=== PATIENT | male | born 1945 | race Caucasian/White ===

== ENCOUNTER 2019-02-02 15:03 | Observation (INO) | payer MEDICARE ==
--- NOTE | 2019-02-02 16:14 | PCM.HP.2 ---
H&P History of Present Illness - General Date of Service: 02/02/19 Admit Problem/Dx: Admission Diagnosis/Problem Admission Diagnosis/Problem CHF, Congestive heart failure Source of Information: Patient, Provider, RN Notes Reviewed History Limitations: Reports: No Limitations - History of Present Illness Initial Comments - Free Text/Narative: Mr. Sidhu is a 73-year-old gentleman who was admitted through the emergency department with increased shortness of breath and peripheral edema secondary to CHF and COPD exacerbation. He has a long-standing smoking history and does continue to smoke up until the time of admission. He has known pulmonary fibrosis as well as underlying COPD. There is a long-standing history of coronary artery disease with previous coronary artery bypass surgery as well as angioplasty with stents. Recent echocardiogram showed decreased left ventricular function, estimated ejection fraction of 30-35%. He has recently been diagnosed with bladder carcinoma and is awaiting treatment. Recent CT scan of the chest showed evidence of significant pulmonary fibrosis in the lower lung akhtar. Over the last 24 hours he has become more short of breath to the point that he was unable to sleep last night lying down and had to sit upright and he's also developed increase in peripheral edema. - Related Data Allergies/Adverse Reactions: Allergies Allergy/AdvReac Type Severity Reaction Status Date / Time No Known Allergies Allergy Verified 02/02/19 11:47 Home Medications: Home Meds Acetaminophen [Tylenol] 325 mg PO ASDIRECTED PRN 12/25/18 [History] Albuterol Sulfate [Albuterol Sulfate Hfa] 8.5 gm IH ASDIRECTED PRN 12/25/18 [ History] Aspirin [Halfprin] 81 mg PO DAILY 12/25/18 [History] Metoprolol Succinate [Toprol XL] 25 mg PO BID 12/25/18 [History] Multivitamin with Minerals [Multiple Vitamin] 1 tab PO DAILY 12/25/18 [History] Nitroglycerin [Nitrostat] 0.4 mg SL ASDIRECTED PRN 12/25/18 [History] Tamsulosin [Tamsulosin 24 Hr] 0.4 mg PO DAILY 12/25/18 [History] atorvaSTATin [Lipitor] 10 mg PO BEDTIME 12/25/18 [History] Oxybutynin Chloride [Ditropan Xl] 10 mg PO DAILY 02/02/19 [History] Past Medical History Cardiovascular History: Reports: Bypass, Heart Failure, High Cholesterol, Hypertension, Stents Gastrointestinal History: Reports: None Neurological History: Reports: None Endocrine/Metabolic History: Reports: Obesity/BMI 30+ - Past Surgical History Head Surgeries/Procedures: Reports: None HEENT Surgical History: Reports: LASIK Cardiovascular Surgical History: Reports: Coronary Artery Stent GI Surgical History: Reports: Cholecystectomy, Hernia, Inguinal Male Surgical History: Reports: Other (See Below) Other Male Surgeries/Procedures: tumor removed from bladder and stents placed last spring Endocrine Surgical History: Reports: None Neurological Surgical History: Reports: Lumbar Spine, Other (See Below) Dermatological Surgical History: Reports: None Social & Family History - Caffeine Use Caffeine Use: Reports: Coffee, Soda H&P Review of Systems - Review of Systems: Review Of Systems: See Below General: Reports: Malaise, Weakness. Denies: Fever, Chills HEENT: Reports: No Symptoms Pulmonary: Reports: Shortness of Breath, Wheezing, Cough. Denies: Pleuritic Chest Pain, Sputum, Hemoptysis Cardiovascular: Reports: Dyspnea on Exertion, Orthopnea, Edema. Denies: Chest Pain, Palpitations, PND, Lightheadedness Gastrointestinal: Reports: No Symptoms Genitourinary: Reports: No Symptoms Musculoskeletal: Reports: No Symptoms Skin: Reports: No Symptoms Psychiatric: Reports: No Symptoms Neurological: Reports: No Symptoms Hematologic/Lymphatic: Reports: No Symptoms Immunologic: Reports: No Symptoms Exam - Exam Exam: See Below - Vital Signs Vital Signs: Last Vital Signs Temp 95.8 F 02/02/19 15:56 Pulse 76 02/02/19 15:56 Resp 33 H 02/02/19 15:56 BP 124/69 02/02/19 15:56 Pulse Ox 94 L 02/02/19 15:56 Weight: 230 lb - Exam Quality Assessment: DVT Prophylaxis General: Alert, Oriented, Cooperative, Moderate Distress HEENT: Conjunctiva Clear, Hearing Intact, Mucosa Moist & [place], Normal Nasal Septum, Posterior Pharynx Clear, Pupils Equal Neck: Supple, Trachea Midline, +2 Carotid Pulse wo Bruit Lungs: Decreased Breath Sounds, Crackles, Rhonchi, Wheezing. No: Rales, Rub GI/Abdominal Exam: Soft, Non-Tender, No Organomegaly, No Distention Back Exam: Normal Inspection, Full Range of Motion Extremities: Non-Tender, Pedal Edema Skin: Warm, Dry, Intact Neurological: Cranial Nerves Intact, Strength Equal Bilateral, Normal Gait, Normal Speech, Normal Tone, Sensation Intact. No: Focal Deficit Neuro Extensive - Mental Status: Alert, Oriented x3, Normal Mood/Affect, Normal Cognition, Memory Intact *Q Meaningful Use (ADM) - VTE Risk Assess *Q Each Risk Factor Represents 1 Point: Swollen Legs, Current, Obesity ( BMI > 25 kg/m2), Congestive heart failure (CHF), Abnormal Pulmonary Function (COPD) Total Score 1 Point Risk Factors: 4 Each Risk Factor Represents 2 Points: Age 60 - 74 Years, Malignancy (present or previous) Total Score 2 Point Risk Factors: 4 Each Risk Factor Represents 3 Points: None Total Score 3 Point Risk Factors: 0 Each Risk Factor Represents 5 Points: None Total Score 5 Point Risk Factors: 0 Venous Thromboembolism Risk Factor Score *Q: 8 Problem List Initiated/Reviewed/Updated: Yes Orders Last 24hrs: Active Orders 24 hr Category Date Time Status Patient Status Manage Transfer [TRANSFER] Routine ADT 02/02/19 16:03 Ordered Resuscitation Status Routine Resus Stat 02/02/19 16:05 Ordered Assessment/Plan Comment:: ASSESSMENT AND PLAN COPD/PULMONARY FIBROSIS EXACERBATION-known underlying pulmonary fibrosis with probable component of COPD. Bilateral basilar dry inspiratory rales with bilateral marked expiratory wheezes. No evidence of underlying pulmonary infection. -Nebulizer therapy with albuterol and duo nebs -Supplemental oxygen as needed -Solu-Medrol 40 mg IV every 6 hours CONGESTIVE HEART FAILURE-probable right and left heart failure with significant peripheral edema. Recent echocardiogram documents left ventricular systolic function decreased with ejection fraction of 30-35%. -Continue outpatient medications -Furosemide 40 mg IV given in the emergency department and will be repeated later this evening -Reassess in a.m. -2 g sodium diet ELEVATED TROPONIN-modest elevation, likely demand ischemia in the setting of respiratory compromise. He does have known underlying coronary artery disease. -Serial troponin levels MAINTENANCE ISSUES -DVT prophylaxis; Lovenox 40 mg subcutaneous daily -GI prophylaxis; continue outpatient PPI therapy -Olivo catheter; not indicated -Nutrition; 2 g sodium diet -Nicotine dependence; continues to smoke intermittently, denies need for nicotine patch CODE STATUS-FULL CODE ADMISSION STATUS-this patient will be admitted to observation status, expect no more than a one night hospital stay for evaluation and management of problems as outlined above. DISPOSITION-anticipate discharge to home after the hospital stay. PRIMARY CARE PROVIDER-patient receives primary care at [facility] in [place], does not recall primary care provider's name - Mortality Measure Prognosis:: Poor
[2019-02-02] MEDS ORDERED: Nitroglycerin 0.4 MG Tab.SL SL PRN (16:17)
[2019-02-02] MEDS ORDERED: Ondansetron 4 MG/2 ML SDV IV PRN (16:17)
[2019-02-02] MEDS ORDERED: oxyCODONE 5 MG Tab PO PRN (16:17)
[2019-02-02] MEDS ORDERED: Acetaminophen 325 MG Tab PO PRN (16:17)
[2019-02-02] MEDS ORDERED: Sodium Chloride 0.9% 10 ML Syringe FLUSH PRN (16:17)
[2019-02-02] MEDS ORDERED: Albuterol 0.083% 2.5 MG/3 ML Neb Soln NEB PRN ×2 (16:17→16:58)
[2019-02-02] MEDS ORDERED: Polyethylene Glycol 3350 Powder 17 GM Packet PO PRN (16:17)
[2019-02-02] MEDS: Enoxaparin 40 MG/0.4 ML Syringe SUBCUT SCH (17:45)
[2019-02-02] MEDS: methylPREDNISolone Sodium Succinate 40 MG/1 ML SDV IVPUSH SCH (17:45)
[2019-02-02] MEDS: Albuterol/Ipratropium 3.0-0.5 MG/3 ML Neb Soln NEB SCH (20:44)
[2019-02-02] MEDS: Metoprolol Succinate 25 MG Tab.ER PO SCH (20:45)
[2019-02-02] MEDS: atorvaSTATin 10 MG Tab PO SCH (20:45)
[2019-02-02] MEDS: Oxybutynin 5 MG Tab PO SCH (20:45)
[2019-02-02] MEDS ORDERED: Furosemide 40 MG/4 ML VIAL IVPUSH ONE (21:00)
[2019-02-03] MEDS: methylPREDNISolone Sodium Succinate 40 MG/1 ML SDV IVPUSH SCH ×5 (00:02→23:00)
[2019-02-03] MEDS: Oxybutynin 5 MG Tab PO SCH ×2 (08:40→20:31)
[2019-02-03] MEDS: Tamsulosin 0.4 MG Cap.ER PO SCH (08:40)
[2019-02-03] MEDS: Metoprolol Succinate 25 MG Tab.ER PO SCH ×2 (08:40→20:31)
[2019-02-03] MEDS: Aspirin 81 MG Tab.EC PO SCH (08:40)
[2019-02-03] MEDS ORDERED: Furosemide 40 MG/4 ML VIAL IVPUSH ONE (10:00)
[2019-02-03] MEDS: Albuterol/Ipratropium 3.0-0.5 MG/3 ML Neb Soln NEB SCH ×4 (10:03→20:31)
--- NOTE | 2019-02-03 11:33 | PCM.PN ---
- General Info Date of Service: 02/03/19 Subjective Update: Mr. Sidhu has been stable since admission yesterday, there is been good improvement in peripheral edema with diuresis, modest improvement in shortness of breath. Vital signs are remained stable and he has been afebrile. Troponin remains modestly elevated but has not climbed significantly, consistent with demand ischemia but no evidence of acute infarct. Functional Status: Reports: Tolerating Diet, Ambulating, Urinating - Review of Systems General: Reports: Weakness. Denies: Fever, Chills Pulmonary: Reports: Shortness of Breath, Cough, Wheezing. Denies: Pleuritic Chest Pain, Sputum, Hemoptysis Cardiovascular: Reports: Dyspnea on Exertion, Edema. Denies: Chest Pain, Palpitations, Orthopnea, PND, Lightheadedness Gastrointestinal: Reports: No Symptoms - Patient Data Vitals - Most Recent: Last Vital Signs Temp 96.6 F 02/03/19 07:40 Pulse 78 02/03/19 10:04 Resp 21 H 02/03/19 10:00 BP 147/87 H 02/03/19 10:00 Pulse Ox 93 L 02/03/19 07:40 Weight - Most Recent: 230 lb I&O - Last 24 Hours: Intake & Output 02/02/19 02/03/19 02/03/19 22:59 06:59 14:59 Intake Total 960 550 Output Total 1900 2000 1080 Balance -1900 -8050 -530 Lab Results Last 24 Hours: Laboratory Results - last 24 hr 02/02/19 02/03/19 02/03/19 Range/Units 18:22 00:10 05:34 WBC 8.6 (4.5-11.0) K/uL RBC 5.26 (4.30-5.90) M/uL Hgb 13.7 (12.0-15.0) g/dL Hct 43.9 (40.0-54.0) % MCV 84 (80-98) fL MCH 26 L (27-31) pg MCHC 31 L (32-36) % Plt Count 250 (150-400) K/uL Neut % (Auto) 93 H (36-66) % Lymph % (Auto) 4 L (24-44) % [place] % (Auto) 3 (2-6) % Eos % (Auto) 0 L (2-4) % Baso % (Auto) 0 (0-1) % Sodium (140-148) mmol/L Potassium (3.6-5.2) mmol/L Chloride (100-108) mmol/L Carbon Dioxide (21-32) mmol/L Anion Gap (5.0-14.0) mmol/L BUN (7-18) mg/dL Creatinine (0.8-1.3) mg/dL Est Cr Clr Drug Dosing mL/min Estimated GFR (MDRD) (>60) Glucose (74-106) mg/dL Calcium (8.5-10.1) mg/dL Magnesium (1.8-2.4) mg/dL Troponin I 0.207 H* 0.227 H* (0.000-0.056) ng/mL 02/03/19 Range/Units 05:34 WBC (4.5-11.0) K/uL RBC (4.30-5.90) M/uL Hgb (12.0-15.0) g/dL Hct (40.0-54.0) % MCV (80-98) fL MCH (27-31) pg MCHC (32-36) % Plt Count (150-400) K/uL Neut % (Auto) (36-66) % Lymph % (Auto) (24-44) % [place] % (Auto) (2-6) % Eos % (Auto) (2-4) % Baso % (Auto) (0-1) % Sodium 141 (140-148) mmol/L Potassium 3.9 (3.6-5.2) mmol/L Chloride 103 (100-108) mmol/L Carbon Dioxide 31 (21-32) mmol/L Anion Gap 6.8 (5.0-14.0) mmol/L BUN 20 H (7-18) mg/dL Creatinine 0.9 (0.8-1.3) mg/dL Est Cr Clr Drug Dosing 70.38 mL/min Estimated GFR (MDRD) > 60 (>60) Glucose 176 H (74-106) mg/dL Calcium 8.5 (8.5-10.1) mg/dL Magnesium 2.0 (1.8-2.4) mg/dL Troponin I 0.204 H* (0.000-0.056) ng/mL Med Orders - Current: Current Medications Acetaminophen (Tylenol) 650 mg PO Q4H PRN PRN Reason: Pain (Mild 1-3)/fever Albuterol (Proventil Neb Soln) 2.5 mg NEB Q4H PRN PRN Reason: Shortness Of Breath/wheezing Albuterol (Proventil Neb Soln) 2.5 mg NEB Q4H PRN PRN Reason: Dyspnea Albuterol/Ipratropium (Duoneb 3.0-0.5 Mg/3 Ml) 3 ml NEB QIDRT [facility] Last Admin: 02/03/19 10:03 Dose: 3 ml Aspirin (Halfprin) 81 mg PO DAILY [facility] Last Admin: 02/03/19 08:40 Dose: 81 mg Atorvastatin Calcium (Lipitor) 10 mg PO BEDTIME [facility] Last Admin: 02/02/19 20:45 Dose: 10 mg Enoxaparin Sodium (Lovenox) 40 mg SUBCUT Q24H [facility] Last Admin: 02/02/19 17:45 Dose: 40 mg Furosemide (Lasix) 40 mg IVPUSH Q12H [facility] Methylprednisolone Sodium Succinate (Solu-Medrol) 40 mg IVPUSH Q6H [facility] Last Admin: 02/03/19 05:45 Dose: 40 mg Metoprolol Succinate (Toprol Xl) 25 mg PO BID [facility] Last Admin: 02/03/19 08:40 Dose: 25 mg Nitroglycerin (Nitrostat) 0.4 mg SL Q5M PRN PRN Reason: Chest Pain Ondansetron HCl (Zofran) 4 mg IV Q4H PRN PRN Reason: Nausea/Vomiting Oxybutynin Chloride (Oxybutynin) 5 mg PO BID [facility] Last Admin: 02/03/19 08:40 Dose: 5 mg Oxycodone HCl (Oxycodone) 5 mg PO Q4H PRN PRN Reason: Pain (moderate 4-6) Polyethylene Glycol (Miralax) 17 gm PO DAILY PRN PRN Reason: Constipation Sodium Chloride (Saline Flush) 10 ml FLUSH ASDIRECTED PRN PRN Reason: Keep Vein Open Tamsulosin HCl (Flomax) 0.4 mg PO DAILY [facility] Last Admin: 02/03/19 08:40 Dose: 0.4 mg Discontinued Medications Furosemide (Lasix) 40 mg IVPUSH NOW ONE Stop: 02/02/19 21:01 Last Admin: 02/02/19 20:45 Dose: 40 mg Furosemide (Lasix) 40 mg IVPUSH NOW ONE Stop: 02/03/19 10:01 Last Admin: 02/03/19 10:10 Dose: 40 mg - Exam Quality Assessment: Supplemental Oxygen, DVT Prophylaxis General: Alert, Oriented, Cooperative, Mild Distress Lungs: Decreased Breath Sounds, Rhonchi, Wheezing. No: Rales, Rub, Stridor Cardiovascular: Regular Rate, Regular Rhythm, No Murmurs, Murmurs GI/Abdominal Exam: Soft, Non-Tender, No Organomegaly, No Distention Extremities: Non-Tender, Pedal Edema - Problem List Review Problem List Initiated/Reviewed/Updated: Yes - My Orders Last 24 Hours: My Active Orders 02/02/19 16:05 Resuscitation Status Routine 02/02/19 16:17 Patient Status [ADT] Routine Ambulate [RC] QID Cardiac Education [RC] Click to Edit Cardiac Monitoring [RC] Q6H Height and Weight [RC] DAILY Intake and Output [RC] QSHIFT Notify Provider Vital Signs [RC] ASDIRECTED Oxygen Therapy [RC] PRN Pulse Oximetry [RC] CONTINUOUS RT Aerosol Therapy [RC] ASDIRECTED Up With Assistance [RC] ASDIRECTED Up to Chair [RC] QID VTE/DVT Education [RC] Per Unit Routine Vital Signs [RC] Q2H Acetaminophen [Tylenol] 650 mg PO Q4H PRN Albuterol [Proventil Neb Soln] 2.5 mg NEB Q4H PRN Nitroglycerin [Nitrostat] 0.4 mg SL Q5M PRN Ondansetron [Zofran] 4 mg IV Q4H PRN Polyethylene Glycol 3350 [MiraLAX] 17 gm PO DAILY PRN Sodium Chloride 0.9% [Saline Flush] 10 ml FLUSH ASDIRECTED PRN oxyCODONE 5 mg PO Q4H PRN Saline Lock Insert [OM.PC] Routine 02/02/19 16:58 Albuterol [Proventil Neb Soln] 2.5 mg NEB Q4H PRN 02/02/19 18:00 Enoxaparin [Lovenox] 40 mg SUBCUT Q24H methylPREDNISolone Sod Succ [Solu-MEDROL] 40 mg IVPUSH Q6H 02/02/19 18:37 EKG Documentation Completion [RC] ASDIRECTED EKG 12 Lead [EK] Routine 02/02/19 21:00 Albuterol/Ipratropium [DuoNeb 3.0-0.5 MG/3 ML] 3 ml NEB QIDRT Metoprolol Succinate [Toprol XL] 25 mg PO BID Oxybutynin 5 mg PO BID atorvaSTATin [Lipitor] 10 mg PO BEDTIME 02/02/19 Lunch 2 Gram Sodium Diet [DIET] 02/03/19 09:00 Aspirin [Halfprin] 81 mg PO DAILY Tamsulosin [Flomax] 0.4 mg PO DAILY 02/03/19 11:29 Potassium Chloride [Klor-Con M20] 40 meq PO ONETIME ONE 02/03/19 19:00 Furosemide [Lasix] 40 mg IVPUSH Q12H 02/04/19 05:00 BASIC METABOLIC PANEL,BMP [CHEM] Timed TROPONIN I [CHEM] Timed - Plan Plan:: ASSESSMENT AND PLAN COPD/PULMONARY FIBROSIS EXACERBATION-known underlying pulmonary fibrosis with probable component of COPD. Bilateral basilar dry inspiratory rales with bilateral marked expiratory wheezes. No evidence of underlying pulmonary infection. Modest improvement in shortness of breath with current management -Nebulizer therapy with albuterol and duo nebs -Supplemental oxygen as needed -Solu-Medrol 40 mg IV every 6 hours CONGESTIVE HEART FAILURE-probable right and left heart failure with significant peripheral edema. Recent echocardiogram documents left ventricular systolic function decreased with ejection fraction of 30-35%. Good improvement thus far in peripheral edema with diuretic therapy -Continue outpatient medications -Furosemide 40 mg IV every 12 hours -Reassess in a.m. -2 g sodium diet ELEVATED TROPONIN-modest elevation, likely demand ischemia in the setting of respiratory compromise. He does have known underlying coronary artery disease. -Serial troponin levels MAINTENANCE ISSUES -DVT prophylaxis; Lovenox 40 mg subcutaneous daily -GI prophylaxis; continue outpatient PPI therapy -Olivo catheter; not indicated -Nutrition; 2 g sodium diet -Nicotine dependence; continues to smoke intermittently, denies need for nicotine patch CODE STATUS-FULL CODE ADMISSION STATUS-this patient will be admitted to observation status, expect no more than a one night hospital stay for evaluation and management of problems as outlined above. DISPOSITION-anticipate discharge to home after the hospital stay. PRIMARY CARE PROVIDER-patient receives primary care at [facility] in [place], does not recall primary care provider's name
[2019-02-03] MEDS ORDERED: Potassium Chloride 20 MEQ Tab.ER PO ONE (12:00)
[2019-02-03] MEDS: Enoxaparin 40 MG/0.4 ML Syringe SUBCUT SCH (18:33)
[2019-02-03] MEDS: Furosemide 40 MG/4 ML VIAL IVPUSH SCH (18:33)
[2019-02-03] MEDS: atorvaSTATin 10 MG Tab PO SCH (20:31)
[2019-02-03] MEDS ORDERED: Melatonin 3 MG Tab PO ONE (21:25)
[2019-02-04] MEDS: methylPREDNISolone Sodium Succinate 40 MG/1 ML SDV IVPUSH SCH (05:42)
[2019-02-04] MEDS: Albuterol/Ipratropium 3.0-0.5 MG/3 ML Neb Soln NEB SCH (07:32)
[2019-02-04] MEDS: Furosemide 40 MG/4 ML VIAL IVPUSH SCH (08:01)
[2019-02-04] MEDS: Aspirin 81 MG Tab.EC PO SCH (08:01)
[2019-02-04] MEDS: Tamsulosin 0.4 MG Cap.ER PO SCH (08:01)
[2019-02-04] MEDS: Metoprolol Succinate 25 MG Tab.ER PO SCH (08:01)
[2019-02-04] MEDS: Oxybutynin 5 MG Tab PO SCH (08:01)
--- NOTE | 2019-02-04 09:45 | PCM.DCSUM1 ---
Discharge Summary - Hospital Course Brief History: Mr. Sidhu is a 73-year-old gentleman who was admitted through the emergency department with weakness, shortness of breath, and increased peripheral edema secondary to congestive heart failure and COPD exacerbation. - Discharge Data Discharge Date: 02/04/19 Discharge Disposition: Home, Self-Care 01 Condition: Fair - Discharge Diagnosis/Problem(s) (1) CHF exacerbation SNOMED Code(s): 611787073, 30558812608980 ICD Code: I50.9 - HEART FAILURE, UNSPECIFIED Status: Acute Current Visit : Yes (2) COPD exacerbation SNOMED Code(s): 287980182 ICD Code: J44.1 - CHRONIC OBSTRUCTIVE PULMONARY DISEASE W (ACUTE) EXACERBATION Status: Acute Current Visit: Yes (3) Hypoxia SNOMED Code(s): 658247625 ICD Code: R09.02 - HYPOXEMIA Status: Acute Current Visit: Yes (4) Pulmonary fibrosis SNOMED Code(s): 74059440 ICD Code: J84.10 - PULMONARY FIBROSIS, UNSPECIFIED Status: Acute Current Visit: No - Patient Summary/Data Hospital Course: Mr. Sidhu is a 73-year-old gentleman who was admitted through the emergency department with increased shortness of breath and peripheral edema secondary to CHF and COPD exacerbation. He has a long-standing smoking history and does continue to smoke up until the time of admission. He has known pulmonary fibrosis as well as underlying COPD. There is a long-standing history of coronary artery disease with previous coronary artery bypass surgery as well as angioplasty with stents. Recent echocardiogram showed decreased left ventricular function, estimated ejection fraction of 30-35%. He has recently been diagnosed with bladder carcinoma and is awaiting treatment. Recent CT scan of the chest showed evidence of significant pulmonary fibrosis in the lower lung akhtar. Over the last 24 hours he has become more short of breath to the point that he was unable to sleep last night lying down and had to sit upright and he's also developed increase in peripheral edema. He was given IV furosemide 40 mg in the emergency department which did initiate a good diuresis. Also noted in the emergency department was a modest elevation in his troponin level, this was felt to be likely demand ischemia in the setting of respiratory compromise. By the following morning he was feeling somewhat improved and did agree to stay 1 additional day for further diuresis. Troponin levels remain modestly elevated but did not increase significantly during the hospital stay. He denied any symptoms of chest pain or pressure, EKG showed no acute ST segment changes. On the day prior to discharge he was noted to have oxygen saturation of 86% on room air while at rest. He will be discharged home with home oxygen 2 L/m via nasal cannula. He was felt to have COPD exacerbation as well with bilateral expiratory wheezes he was treated with nebulizer therapy and Solu-Medrol. It was no evidence of underlying pulmonary infection identified during hospitalization. He will be discharged home with an additional 3 days of oral prednisone. The importance of a low sodium diet was reviewed with him and he will be discharged home on diuretic therapy with furosemide 40 mg by mouth daily. Follow-up appointment will be scheduled with his primary care provider within one week. Activity will be as tolerated and he is again encouraged to follow a low-sodium diet. - Patient Instructions Diet: Low Sodium Activity: As Tolerated Other/Special Instructions: Please schedule follow-up appointment with primary care provider within one week. Please arrange for home oxygen 2 L/m via nasal cannula. - Discharge Plan *PRESCRIPTION DRUG MONITORING PROGRAM REVIEWED*: Not Applicable *COPY OF PRESCRIPTION DRUG MONITORING REPORT IN PATIENT SIMONE: Not Applicable Prescriptions/Med Rec: Furosemide 40 mg PO DAILY #30 tablet predniSONE [Prednisone] 40 mg PO DAILY #6 tablet Home Medications: Home Meds Acetaminophen [Tylenol] 325 mg PO ASDIRECTED PRN 12/25/18 [History] Albuterol Sulfate [Albuterol Sulfate Hfa] 8.5 gm IH ASDIRECTED PRN 12/25/18 [ History] Aspirin [Halfprin] 81 mg PO DAILY 12/25/18 [History] Metoprolol Succinate [Toprol XL] 25 mg PO BID 12/25/18 [History] Multivitamin with Minerals [Multiple Vitamin] 1 tab PO DAILY 12/25/18 [History] Nitroglycerin [Nitrostat] 0.4 mg SL ASDIRECTED PRN 12/25/18 [History] Tamsulosin [Flomax] 0.4 mg PO DAILY 12/25/18 [History] atorvaSTATin [Lipitor] 10 mg PO BEDTIME 12/25/18 [History] Oxybutynin Chloride [Ditropan Xl] 10 mg PO DAILY 02/02/19 [History] Furosemide 40 mg PO DAILY #30 tablet 02/04/19 [Rx] predniSONE [Prednisone] 40 mg PO DAILY #6 tablet 02/04/19 [Rx] Oxygen Therapy Mode: Nasal Cannula Oxygen Flow Rate (L/min): 2 - Discharge Summary/Plan Comment DC Time >30 min.: No - Patient Data Vitals - Most Recent: Last Vital Signs Temp 94.9 F L 02/04/19 08:00 Pulse 74 02/04/19 08:01 Resp 21 H 02/04/19 08:00 BP 105/69 02/04/19 08:01 Pulse Ox 90 L 02/04/19 08:06 Weight - Most Recent: 230 lb I&O - Last 24 hours: Intake & Output 02/03/19 02/04/19 02/04/19 22:59 06:59 14:59 Intake Total 1100 240 340 Output Total 1200 550 Balance -100 -310 340 Lab Results - Last 24 hrs: Laboratory Results - last 24 hr 02/03/19 02/03/19 02/04/19 Range/Units 17:33 17:33 05:47 Sodium 139 L (140-148) mmol/L Potassium 4.3 3.9 (3.6-5.2) mmol/L Chloride 102 (100-108) mmol/L Carbon Dioxide 32 (21-32) mmol/L Anion Gap 8.9 (5.0-14.0) mmol/L BUN 25 H (7-18) mg/dL Creatinine 1.1 (0.8-1.3) mg/dL Est Cr Clr Drug Dosing 57.59 mL/min Estimated GFR (MDRD) > 60 (>60) Glucose 221 H (74-106) mg/dL Calcium 8.7 (8.5-10.1) mg/dL Magnesium 2.0 (1.8-2.4) mg/dL Troponin I 0.144 H* (0.000-0.056) ng/mL Med Orders - Current: Current Medications Acetaminophen (Tylenol) 650 mg PO Q4H PRN PRN Reason: Pain (Mild 1-3)/fever Albuterol (Proventil Neb Soln) 2.5 mg NEB Q4H PRN PRN Reason: Shortness Of Breath/wheezing Albuterol (Proventil Neb Soln) 2.5 mg NEB Q4H PRN PRN Reason: Dyspnea Albuterol/Ipratropium (Duoneb 3.0-0.5 Mg/3 Ml) 3 ml NEB QIDRT [facility] Last Admin: 02/04/19 07:32 Dose: Not Given Aspirin (Halfprin) 81 mg PO DAILY [facility] Last Admin: 02/04/19 08:01 Dose: 81 mg Atorvastatin Calcium (Lipitor) 10 mg PO BEDTIME [facility] Last Admin: 02/03/19 20:31 Dose: 10 mg Enoxaparin Sodium (Lovenox) 40 mg SUBCUT Q24H [facility] Last Admin: 02/03/19 18:33 Dose: Not Given Furosemide (Lasix) 40 mg IVPUSH Q12H [facility] Last Admin: 02/04/19 08:01 Dose: 40 mg Methylprednisolone Sodium Succinate (Solu-Medrol) 40 mg IVPUSH Q6H [facility] Last Admin: 02/04/19 05:42 Dose: 40 mg Metoprolol Succinate (Toprol Xl) 25 mg PO BID [facility] Last Admin: 02/04/19 08:01 Dose: 25 mg Nitroglycerin (Nitrostat) 0.4 mg SL Q5M PRN PRN Reason: Chest Pain Ondansetron HCl (Zofran) 4 mg IV Q4H PRN PRN Reason: Nausea/Vomiting Oxybutynin Chloride (Oxybutynin) 5 mg PO BID [facility] Last Admin: 02/04/19 08:01 Dose: 5 mg Oxycodone HCl (Oxycodone) 5 mg PO Q4H PRN PRN Reason: Pain (moderate 4-6) Polyethylene Glycol (Miralax) 17 gm PO DAILY PRN PRN Reason: Constipation Sodium Chloride (Saline Flush) 10 ml FLUSH ASDIRECTED PRN PRN Reason: Keep Vein Open Last Admin: 02/03/19 18:40 Dose: 10 ml Tamsulosin HCl (Flomax) 0.4 mg PO DAILY [facility] Last Admin: 02/04/19 08:01 Dose: 0.4 mg Discontinued Medications Furosemide (Lasix) 40 mg IVPUSH NOW ONE Stop: 02/02/19 21:01 Last Admin: 02/02/19 20:45 Dose: 40 mg Furosemide (Lasix) 40 mg IVPUSH NOW ONE Stop: 02/03/19 10:01 Last Admin: 02/03/19 10:10 Dose: 40 mg Melatonin (Melatonin) 6 mg PO BEDTIME ONE Stop: 02/03/19 21:26 Last Admin: 02/03/19 23:00 Dose: 6 mg Potassium Chloride (Klor-Con M20) 40 meq PO ONETIME ONE Stop: 02/03/19 12:01 Last Admin: 02/03/19 11:36 Dose: 40 meq - Exam Quality Assessment: Reports: DVT Prophylaxis General: Reports: Alert, Oriented, Cooperative, No Acute Distress Lungs: Reports: Decreased Breath Sounds, Crackles (Both bases). Denies: Rhonchi , Wheezing Cardiovascular: Reports: Regular Rate, Regular Rhythm, Murmurs GI/Abdominal Exam: Soft, Non-Tender, No Organomegaly, No Distention Extremities: Non-Tender, Pedal Edema
== END 2019-02-04 10:20 | disposition home or self-care (01) ==
LOC: JP.ICU 15:03 → UNDOADMIN 15:03 → JP.ICU 16:03 → UNDODISIN 02-04 10:20
PROVIDERS: ADMIT Hospitalist; ATTEND Hospitalist
DX: I11.0 Hypertensive heart disease with heart failure (principal); I50.9 Heart failure, unspecified; J44.1 Chronic obstructive pulmonary disease with (acute) exacerbation; J84.10 Pulmonary fibrosis, unspecified; I25.10 Atherosclerotic heart disease of native coronary artery without angina pectoris; C67.9 Malignant neoplasm of bladder, unspecified; E78.00 Pure hypercholesterolemia, unspecified; E66.9 Obesity, unspecified; R79.89 Other specified abnormal findings of blood chemistry; F17.210 Nicotine dependence, cigarettes, uncomplicated; Z95.1 Presence of aortocoronary bypass graft; Z95.5 Presence of coronary angioplasty implant and graft; Z79.899 Other long term (current) drug therapy; Z79.82 Long term (current) use of aspirin; Z68.36 Body mass index [BMI] 36.0-36.9, adult
CPT/HCPCS: 36415; 80048; 83735; 84132; 84484; 85025; 93005; 93010; 94640; A9270; J1650; J1940; J2920; J7620-GY

== ENCOUNTER 2019-02-14 11:59 | Emergency (ER) | payer MEDICARE ==
[2019-02-14] MEDS ORDERED: Aspirin 81 MG Tab.Chew PO ONE (12:16)
[2019-02-14] MEDS ORDERED: Nitroglycerin 0.4 MG Tab.SL SL ONE (12:16)
[2019-02-14] MEDS ORDERED: Metoprolol Tartrate 5 MG/5 ML SDV IVPUSH ONE ×2 (12:25→13:22)
[2019-02-14] MEDS ORDERED: Furosemide 40 MG/4 ML VIAL IVPUSH ONE (12:27)
[2019-02-14] MEDS ORDERED: Sodium Chloride 0.9% 1,000 ML IV SCH (12:30)
[2019-02-14] MEDS ORDERED: Albuterol 0.083% 2.5 MG/3 ML Neb Soln NEB ONE (12:40)
--- NOTE | 2019-02-14 13:11 | EDM.PDOC ---
ED HPI GENERAL MEDICAL PROBLEM - General Chief Complaint: Chest Pain Stated Complaint: HEART ISSUES Time Seen by Provider: 02/14/19 13:03 Source of Information: Reports: Patient History Limitations: Reports: No Limitations - History of Present Illness INITIAL COMMENTS - FREE TEXT/NARRATIVE: pt arrived with left sided chest pain. This has been going on and off for the past few days. he has been sob. He has noted marked increase in ankle swelling. He has a history of 2-3 heart attacks in the past. Onset: Other (pt has been having increased swelling and chest pain for the past 2-3 days. ) Duration: Hour(s): Location: Reports: Chest Associated Symptoms: Reports: Cough, Malaise, Shortness of Breath, Weakness Chest Pain Score (Numeric/FACES): 0 - Related Data Allergies Allergy/AdvReac Type Severity Reaction Status Date / Time No Known Allergies Allergy Verified 02/02/19 11:47 Home Meds: Home Meds Acetaminophen [Tylenol] 325 mg PO ASDIRECTED PRN 12/25/18 [History] Albuterol Sulfate [Albuterol Sulfate Hfa] 8.5 gm IH ASDIRECTED PRN 12/25/18 [ History] Aspirin [Halfprin] 81 mg PO DAILY 12/25/18 [History] Metoprolol Succinate [Toprol XL] 25 mg PO BID 12/25/18 [History] Multivitamin with Minerals [Multiple Vitamin] 1 tab PO DAILY 12/25/18 [History] Nitroglycerin [Nitrostat] 0.4 mg SL ASDIRECTED PRN 12/25/18 [History] Tamsulosin [Flomax] 0.4 mg PO DAILY 12/25/18 [History] atorvaSTATin [Lipitor] 10 mg PO BEDTIME 12/25/18 [History] Oxybutynin Chloride [Ditropan Xl] 10 mg PO DAILY 02/02/19 [History] Furosemide 40 mg PO DAILY #30 tablet 02/04/19 [Rx] Past Medical History Cardiovascular History: Reports: Bypass, Heart Failure, High Cholesterol, Hypertension, Stents Respiratory History: Reports: COPD Gastrointestinal History: Reports: None Neurological History: Reports: None Endocrine/Metabolic History: Reports: Obesity/BMI 30+ Oncologic (Cancer) History: Reports: Bladder - Past Surgical History Head Surgeries/Procedures: Reports: None HEENT Surgical History: Reports: JESU Cardiovascular Surgical History: Reports: Coronary Artery Stent GI Surgical History: Reports: Cholecystectomy, Hernia, Inguinal Male Surgical History: Reports: Other (See Below) Other Male Surgeries/Procedures: tumor removed from bladder and stents placed last spring Endocrine Surgical History: Reports: None Neurological Surgical History: Reports: Lumbar Spine, Other (See Below) Dermatological Surgical History: Reports: None Social & Family History - Tobacco Use Smoking Status *Q: Current Every Day Smoker Years of Tobacco use: 50 Packs/Tins Daily: 1 - Caffeine Use Caffeine Use: Reports: Coffee, Soda - Recreational Drug Use Recreational Drug Use: No ED ROS GENERAL - Review of Systems Review Of Systems: See Below Constitutional: Reports: Weakness HEENT: Reports: No Symptoms Respiratory: Reports: Shortness of Breath, Cough, Other (pt has had left sided chest pain. ) Cardiovascular: Reports: Chest Pain, Dyspnea on Exertion, Edema GI/Abdominal: Reports: No Symptoms : Reports: No Symptoms Musculoskeletal: Reports: No Symptoms Skin: Reports: No Symptoms Neurological: Reports: No Symptoms Psychiatric: Reports: Agitation ED EXAM, GENERAL - Physical Exam Exam: See Below Free Text/Narrative:: pt arrived sob and with increased swelling in his ankles. He had a elevated trop and a rapid atrial fib. He has a known rt bundle branch block. His chest xray showed chf. Exam Limited By: No Limitations General Appearance: Alert, Anxious, Mild Distress, Other (pt was having left sided chest pain. He was given asa and 1 nitro and his pain was better. ) Ears: Normal TMs Nose: Normal Inspection Throat/Mouth: Normal Inspection Head: Atraumatic Neck: Normal Inspection Respiratory/Chest: Decreased Breath Sounds, Rales Cardiovascular: Tachycardia, Irregularly Irregular, Other (pt is having left sided chest pain. ) GI/Abdominal: Soft, Non-Tender (Male) Exam: Deferred Rectal (Males) Exam: Deferred Back Exam: Normal Inspection Extremities: Pedal Edema, Other (pt has plus 3 edema) Neurological: Alert, Oriented, Normal Cognition Psychiatric: Anxious Course - Vital Signs Last Recorded V/S: Last Vital Signs Temp 35.0 C L 02/14/19 12:26 Pulse 93 02/14/19 15:31 Resp 20 02/14/19 15:31 BP 125/89 02/14/19 15:31 Pulse Ox 93 L 02/14/19 13:19 - Orders/Labs/Meds Labs: Laboratory Tests 02/14/19 02/14/19 02/14/19 Range/Units 12:07 12:08 12:08 WBC 12.9 H (4.5-11.0) K/uL RBC 5.88 (4.30-5.90) M/uL Hgb 15.3 H (12.0-15.0) g/dL Hct 48.4 (40.0-54.0) % MCV 82 (80-98) fL MCH 26 L (27-31) pg MCHC 32 (32-36) % Plt Count 234 (150-400) K/uL Neut % (Auto) 78 H (36-66) % Lymph % (Auto) 11 L (24-44) % [place] % (Auto) 10 H (2-6) % Eos % (Auto) 1 L (2-4) % Baso % (Auto) 0 (0-1) % Sodium (140-148) mmol/L Potassium (3.6-5.2) mmol/L Chloride (100-108) mmol/L Carbon Dioxide (21-32) mmol/L Anion Gap (5.0-14.0) mmol/L BUN (7-18) mg/dL Creatinine (0.8-1.3) mg/dL Est Cr Clr Drug Dosing mL/min Estimated GFR (MDRD) (>60) Glucose (74-106) mg/dL Calcium (8.5-10.1) mg/dL Magnesium 2.2 (1.8-2.4) mg/dL Total Bilirubin (0.2-1.0) mg/dL AST (15-37) U/L ALT (12-78) U/L Alkaline Phosphatase (46-116) U/L Troponin I 0.680 H* (0.000-0.056) ng/mL NT-Pro-B Natriuret Pep (5-125) pg/mL Total Protein (6.4-8.2) g/dL Albumin (3.4-5.0) g/dL Globulin (2.3-3.5) g/dL Albumin/Globulin Ratio (1.2-2.2) 02/14/19 02/14/19 02/14/19 Range/Units 12:08 12:43 14:10 WBC (4.5-11.0) K/uL RBC (4.30-5.90) M/uL Hgb (12.0-15.0) g/dL Hct (40.0-54.0) % MCV (80-98) fL MCH (27-31) pg MCHC (32-36) % Plt Count (150-400) K/uL Neut % (Auto) (36-66) % Lymph % (Auto) (24-44) % [place] % (Auto) (2-6) % Eos % (Auto) (2-4) % Baso % (Auto) (0-1) % Sodium 137 L (140-148) mmol/L Potassium 4.0 (3.6-5.2) mmol/L Chloride 101 (100-108) mmol/L Carbon Dioxide 25 (21-32) mmol/L Anion Gap 15.0 H (5.0-14.0) mmol/L BUN 20 H (7-18) mg/dL Creatinine 1.3 (0.8-1.3) mg/dL Est Cr Clr Drug Dosing 50.42 mL/min Estimated GFR (MDRD) 54 L (>60) Glucose 222 H (74-106) mg/dL Calcium 8.6 (8.5-10.1) mg/dL Magnesium (1.8-2.4) mg/dL Total Bilirubin 1.0 (0.2-1.0) mg/dL AST 55 H D (15-37) U/L ALT 69 (12-78) U/L Alkaline Phosphatase 151 H (46-116) U/L Troponin I 1.089 H* (0.000-0.056) ng/mL NT-Pro-B Natriuret Pep 24246 H (5-125) pg/mL Total Protein 7.1 (6.4-8.2) g/dL Albumin 3.1 L (3.4-5.0) g/dL Globulin 4.0 H (2.3-3.5) g/dL Albumin/Globulin Ratio 0.8 L (1.2-2.2) Meds: Medications Discontinued Medications Generic Name Dose Route Start Last Admin Trade Name Freq PRN Reason Stop Dose Admin Albuterol 2.5 mg 02/14/19 12:40 02/14/19 13:20 Proventil Neb Soln NEB 02/14/19 12:41 2.5 mg ONETIME ONE Administration Aspirin 324 mg 02/14/19 12:16 02/14/19 12:20 Aspirin PO 02/14/19 12:17 324 mg ONETIME ONE Administration Furosemide 40 mg 02/14/19 12:27 02/14/19 13:24 Lasix IVPUSH 02/14/19 12:28 40 mg ONETIME ONE Administration Sodium Chloride 1,000 mls @ 100 mls/hr 02/14/19 12:30 02/14/19 12:24 Normal Saline IV 100 mls/hr ASDIRECTED ALLAN Administration Metoprolol Tartrate 2.5 mg 02/14/19 12:25 02/14/19 13:25 Lopressor IVPUSH 02/14/19 12:26 2.5 mg ONETIME ONE Administration Metoprolol Tartrate 2.5 mg 02/14/19 13:22 02/14/19 14:09 Lopressor IVPUSH 02/14/19 13:23 2.5 mg ONETIME ONE Administration Nitroglycerin 0.4 mg 02/14/19 12:16 02/14/19 12:22 Nitrostat SL 02/14/19 12:17 0.4 mg ONETIME ONE Administration - Re-Assessments/Exams Free Text/Narrative Re-Assessment/Exam: 02/14/19 16:00 pt arrived with sob, ankle swelling and left sided chest pain. His chest xray showed chf. His trop was ip and the second one was greater than 1.0. He had a markedly elevated bnp. pt absolutely refused to be transfered to Cardiology in [place] by ambulance. Because he refused to go by ambulance an appt was set up for 9 am tomorrow and pt is aware of this. 02/17/19 20:55 Departure - Departure Time of Disposition: 15:49 Disposition: Against Medical Advice 07 Condition: Fair Clinical Impression: Atrial fibrillation, Elevated troponin CHF (congestive heart failure) Qualifiers: Heart failure type: unspecified Heart failure chronicity: acute on chronic Qualified Code(s): I50.9 - Heart failure, unspecified Instructions: Atrial Fibrillation, [id number] Referrals: PCP,None [Primary Care Provider] - Forms: ED Department Discharge Care Plan Goals: . pt refuses to be transfered to cardiology but states he will go to [place] tomorrow morning. I did have Dr cantu come and talk to him and he also could not convince him either to stay here or be transfered to [place] by ambulance. I did call [place] to see if some arrangement could be made for tomorrow for him so he is a direct admit. Increase furosomide to 40 mg bid and increase metorprol to 50mg qam and 25 mg in the pm. rtc if he should get worse. copy lab work, ekgs and Handp to send with him.
--- NOTE | 2019-02-14 13:23 | CRLCR ---
INDICATION: Chest pain COMPARISON: Portable chest dated 02/02/2019 TECHNIQUE: Portable chest performed at 12:17 p.m. FINDINGS: There is stable moderate cardiomegaly. There is central pulmonary vascular congestion but no overt evidence of interstitial edema. There is no evidence of pleural effusion. There is no evidence of pneumothorax. There are no new focal infiltrates or masses. IMPRESSION: Stable cardiomegaly. Dictated by Tony Sosa MD @ Feb 14 2019 1:13PM Signed by Dr. Tony Sosa @ Feb 14 2019 1:21PM
--- NOTE | 2019-02-14 15:50 | PCM.CONS ---
H&P History of Present Illness - General Date of Service: 02/14/19 Source of Information: Patient, Old Records, Provider, RN Notes Reviewed History Limitations: Reports: No Limitations - History of Present Illness Initial Comments - Free Text/Narative: Mr. Sidhu is a 73-year-old gentleman who I was asked to see in the emergency department by Dr. Nguyen. Mr. Sidhu has a known history of coronary artery disease as well as congestive heart failure. He was hospitalized at our facility within the past month for management of congestive heart failure. Since discharge he has had increased peripheral edema and also reported symptoms of chest pain. He came into the emergency department this morning for further evaluation and was noted to have significant peripheral edema as well as evidence of pulmonary edema on chest x-ray. Initial troponin level was elevated at 0.6, follow-up troponin level further elevated at greater than 1. Dr. Nguyen is recommended to the patient that he be transported via EMS to a higher level of care for cardiology consultation and probable intervention. I explained to Mr. Sidhu that he's had an injury to his heart muscle and requires more advanced level of care than were able to provide for him here. He was adamant about not staying at this facility or being transferred to facility with cardiology. I explained to him that he is at risk for sudden and further heart damage. He refuses our recommendations and is planning on leaving the emergency department AGAINST MEDICAL ADVICE. Chest Pain Score (Numeric/FACES): 0 - Related Data Allergies/Adverse Reactions: Allergies Allergy/AdvReac Type Severity Reaction Status Date / Time No Known Allergies Allergy Verified 02/02/19 11:47 Home Medications: Home Meds Acetaminophen [Tylenol] 325 mg PO ASDIRECTED PRN 12/25/18 [History] Albuterol Sulfate [Albuterol Sulfate Hfa] 8.5 gm IH ASDIRECTED PRN 12/25/18 [ History] Aspirin [Halfprin] 81 mg PO DAILY 12/25/18 [History] Metoprolol Succinate [Toprol XL] 25 mg PO BID 12/25/18 [History] Multivitamin with Minerals [Multiple Vitamin] 1 tab PO DAILY 12/25/18 [History] Nitroglycerin [Nitrostat] 0.4 mg SL ASDIRECTED PRN 12/25/18 [History] Tamsulosin [Flomax] 0.4 mg PO DAILY 12/25/18 [History] atorvaSTATin [Lipitor] 10 mg PO BEDTIME 12/25/18 [History] Oxybutynin Chloride [Ditropan Xl] 10 mg PO DAILY 02/02/19 [History] Furosemide 40 mg PO DAILY #30 tablet 02/04/19 [Rx] Past Medical History Cardiovascular History: Reports: Bypass, Heart Failure, High Cholesterol, Hypertension, Stents Respiratory History: Reports: COPD Gastrointestinal History: Reports: None Neurological History: Reports: None Endocrine/Metabolic History: Reports: Obesity/BMI 30+ Oncologic (Cancer) History: Reports: Bladder - Past Surgical History Head Surgeries/Procedures: Reports: None HEENT Surgical History: Reports: LASIK Cardiovascular Surgical History: Reports: Coronary Artery Stent GI Surgical History: Reports: Cholecystectomy, Hernia, Inguinal Male Surgical History: Reports: Other (See Below) Other Male Surgeries/Procedures: tumor removed from bladder and stents placed last spring Endocrine Surgical History: Reports: None Neurological Surgical History: Reports: Lumbar Spine, Other (See Below) Dermatological Surgical History: Reports: None Social & Family History - Tobacco Use Smoking Status *Q: Current Every Day Smoker Years of Tobacco use: 50 Packs/Tins Daily: 1 - Caffeine Use Caffeine Use: Reports: Coffee, Soda - Recreational Drug Use Recreational Drug Use: No H&P Review of Systems - Review of Systems: Review Of Systems: See Below Pulmonary: Reports: Shortness of Breath. Denies: Wheezing, Pleuritic Chest Pain , Cough, Sputum, Hemoptysis Cardiovascular: Reports: Chest Pain, Dyspnea on Exertion, Orthopnea, PND, Edema. Denies: Palpitations, Lightheadedness, Syncope Gastrointestinal: Reports: No Symptoms Exam - Exam Exam: See Below - Vital Signs Vital Signs: Last Vital Signs Temp 95.0 F L 02/14/19 12:26 Pulse 93 02/14/19 15:31 Resp 20 02/14/19 15:31 BP 125/89 02/14/19 15:31 Pulse Ox 93 L 02/14/19 13:19 Weight: 235 lb 7.259 oz - Exam General: Alert, Mild Distress. No: Cooperative Neck: Supple, Trachea Midline, +2 Carotid Pulse wo Bruit Lungs: Normal Respiratory Effort, Decreased Breath Sounds, Rales. No: Rhonchi, Rub, Wheezing Cardiovascular: Normal S1, Normal S2, Irregular Rhythm, Tachycardia. No: Systolic Murmur, Diastolic Murmur GI/Abdominal Exam: Soft, Non-Tender, No Organomegaly, No Distention Extremities: Non-Tender, Pedal Edema - Patient Data Lab Results Last 24 hrs: Laboratory Results - last 24 hr 02/14/19 02/14/19 02/14/19 Range/Units 12:07 12:08 12:08 WBC 12.9 H (4.5-11.0) K/uL RBC 5.88 (4.30-5.90) M/uL Hgb 15.3 H (12.0-15.0) g/dL Hct 48.4 (40.0-54.0) % MCV 82 (80-98) fL MCH 26 L (27-31) pg MCHC 32 (32-36) % Plt Count 234 (150-400) K/uL Neut % (Auto) 78 H (36-66) % Lymph % (Auto) 11 L (24-44) % [place] % (Auto) 10 H (2-6) % Eos % (Auto) 1 L (2-4) % Baso % (Auto) 0 (0-1) % Sodium (140-148) mmol/L Potassium (3.6-5.2) mmol/L Chloride (100-108) mmol/L Carbon Dioxide (21-32) mmol/L Anion Gap (5.0-14.0) mmol/L BUN (7-18) mg/dL Creatinine (0.8-1.3) mg/dL Est Cr Clr Drug Dosing mL/min Estimated GFR (MDRD) (>60) Glucose (74-106) mg/dL Calcium (8.5-10.1) mg/dL Magnesium 2.2 (1.8-2.4) mg/dL Total Bilirubin (0.2-1.0) mg/dL AST (15-37) U/L ALT (12-78) U/L Alkaline Phosphatase (46-116) U/L Troponin I 0.680 H* (0.000-0.056) ng/mL NT-Pro-B Natriuret Pep (5-125) pg/mL Total Protein (6.4-8.2) g/dL Albumin (3.4-5.0) g/dL Globulin (2.3-3.5) g/dL Albumin/Globulin Ratio (1.2-2.2) 09/04/19 09/04/19 09/04/19 Range/Units 12:08 12:43 14:10 WBC (4.5-11.0) K/uL RBC (4.30-5.90) M/uL Hgb (12.0-15.0) g/dL Hct (40.0-54.0) % MCV (80-98) fL MCH (27-31) pg MCHC (32-36) % Plt Count (150-400) K/uL Neut % (Auto) (36-66) % Lymph % (Auto) (24-44) % [place] % (Auto) (2-6) % Eos % (Auto) (2-4) % Baso % (Auto) (0-1) % Sodium 137 L (140-148) mmol/L Potassium 4.0 (3.6-5.2) mmol/L Chloride 101 (100-108) mmol/L Carbon Dioxide 25 (21-32) mmol/L Anion Gap 15.0 H (5.0-14.0) mmol/L BUN 20 H (7-18) mg/dL Creatinine 1.3 (0.8-1.3) mg/dL Est Cr Clr Drug Dosing 50.42 mL/min Estimated GFR (MDRD) 54 L (>60) Glucose 222 H (74-106) mg/dL Calcium 8.6 (8.5-10.1) mg/dL Magnesium (1.8-2.4) mg/dL Total Bilirubin 1.0 (0.2-1.0) mg/dL AST 55 H D (15-37) U/L ALT 69 (12-78) U/L Alkaline Phosphatase 151 H (46-116) U/L Troponin I 1.089 H* (0.000-0.056) ng/mL NT-Pro-B Natriuret Pep 48142 H (5-125) pg/mL Total Protein 7.1 (6.4-8.2) g/dL Albumin 3.1 L (3.4-5.0) g/dL Globulin 4.0 H (2.3-3.5) g/dL Albumin/Globulin Ratio 0.8 L (1.2-2.2) Result Diagrams: 02/14/19 12:08 02/14/19 12:08 Consult PN Assessment/Plan Procedures: Procedures AIRWAY INHALATION TREATMENT (02/02/19) ASSAY OF CREATININE (01/02/19) ASSAY OF MAGNESIUM (02/02/19) ASSAY OF NATRIURETIC PEPTIDE (02/02/19) ASSAY OF SERUM POTASSIUM (02/02/19) ASSAY OF TROPONIN QUANT (02/02/19) COMPLETE CBC W/AUTO DIFF WBC (02/02/19) COMPREHEN METABOLIC PANEL (02/02/19) CT ABD & PELV 1/> REGNS (09/21/18) CT THORAX W/DYE (01/02/19) ELECTROCARDIOGRAM REPORT (02/02/19) ELECTROCARDIOGRAM TRACING (02/02/19) EMERGENCY DEPT VISIT (02/02/19) METABOLIC PANEL TOTAL CA (02/02/19) MRI CHEST SPINE W/O DYE (01/25/18) MRI LUMBAR SPINE W/O DYE (01/18/18) ROUTINE VENIPUNCTURE (02/02/19) THER/PROPH/DIAG INJ IV PUSH (02/02/19) TTE W/DOPPLER COMPLETE (11/09/18) US EXAM ABDO BACK WALL DANG (03/01/14) X-RAY EXAM CHEST 2 VIEWS (02/02/19) Problem List Initiated/Reviewed/Updated: Yes Plan: ASSESSMENT AND RECOMMENDATIONS NON-ST SEGMENT ELEVATION MYOCARDIAL INFARCTION-he is had recent symptoms of shortness of breath, peripheral edema, and chest pain. Known history of congestive heart failure as well as underlying coronary artery disease with previous cardiac interventions including coronary artery bypass surgery and coronary artery angioplasty with stent placement. Evidence of acute MT today with elevation in troponin level. Findings were reviewed with the patient and recommendation that he be transferred to a higher level of care with cardiology available for evaluation and probable intervention. He absolutely refuses hospitalization at our facility or with transfer. He is planning on leaving the emergency department and signing out AMA. Reports that he would except cardiology follow-up tomorrow. -Return to the emergency department if he notes worsening or ongoing symptoms -Up follow-up with cardiology tomorrow in [place] Requesting Provider: Josie Date Consult Requested: 02/14/19 Reason for Consult: Non-ST segment myocardial infarction Patient History Reviewed: Yes Notified Requestor: Yes
== END 2019-02-14 16:10 | disposition left against medical advice (07) ==
LOC: JP.ED 11:59
DX: I11.0 Hypertensive heart disease with heart failure (principal); I50.9 Heart failure, unspecified; I48.91 Unspecified atrial fibrillation; R79.89 Other specified abnormal findings of blood chemistry; E78.00 Pure hypercholesterolemia, unspecified; J44.9 Chronic obstructive pulmonary disease, unspecified; F17.210 Nicotine dependence, cigarettes, uncomplicated; Z79.82 Long term (current) use of aspirin; Z79.899 Other long term (current) drug therapy
CPT/HCPCS: 36415; 71045; 80053; 83735; 83880; 84484; 85025; 93005; 94640; 96361; 96374; 96375; 96376; 99285; A9270; J1940; J3490; J7030

== ENCOUNTER 2019-02-15 10:50 | Emergency (ER) | payer MEDICARE ==
--- NOTE | 2019-02-15 10:59 | EDM.PDOC ---
ED HPI GENERAL MEDICAL PROBLEM - General Chief Complaint: Respiratory Problem Stated Complaint: SHORTNESS OF BREATH Time Seen by Provider: 02/15/19 11:01 Source of Information: Reports: Patient, EMS, Old Records, RN History Limitations: Reports: No Limitations - History of Present Illness INITIAL COMMENTS - FREE TEXT/NARRATIVE: 73 yo male was seen here yesterday by Dr. Nguyen. His Trop and BNP were both elevated and he was encouraged to allow transfer to [facility], but her refused. He was encouraged to go to [place] directly today, but he decided to call EMS and come here again instead. Is already refusing his oxygen here in the ER this morning. Apparently the chest pains he had this morning resolved before arrival. His chest pain lasted about a half hour he thinks. His breathing is worse today than yesterday, says "I am dying". Complains also of increased thirst. Has never taken the metformin that his primary prescribed. When he called EMS today he thought they could take him straight to [facility]. Lives alone. Onset: Gradual Duration: Day(s):, Getting Worse Location: Reports: Chest Quality: Reports: Pressure (now gone) Severity: Moderate Improves with: Reports: Other (ASA) Worsens with: Reports: Other (exertion) Context: Reports: Other (Hx of CHF and prior AZ's) Associated Symptoms: Reports: Chest Pain (now gone), Shortness of Breath. Denies: Cough, Diaphoresis, Fever/Chills, Nausea/Vomiting, Syncope Treatments INSULATION BLOWER: Reports: Other (see below) (ASA per patient, oxygen per EMS) - Related Data Allergies Allergy/AdvReac Type Severity Reaction Status Date / Time No Known Allergies Allergy Verified 02/02/19 11:47 Home Meds: Home Meds Acetaminophen [Tylenol] 325 mg PO ASDIRECTED PRN 12/25/18 [History] Albuterol Sulfate [Albuterol Sulfate Hfa] 8.5 gm IH ASDIRECTED PRN 12/25/18 [ History] Aspirin [Halfprin] 81 mg PO DAILY 12/25/18 [History] Metoprolol Succinate [Toprol XL] 25 mg PO BID 12/25/18 [History] Multivitamin with Minerals [Multiple Vitamin] 1 tab PO DAILY 12/25/18 [History] Nitroglycerin [Nitrostat] 0.4 mg SL ASDIRECTED PRN 12/25/18 [History] Tamsulosin [Flomax] 0.4 mg PO DAILY 12/25/18 [History] atorvaSTATin [Lipitor] 10 mg PO BEDTIME 12/25/18 [History] Oxybutynin Chloride [Ditropan Xl] 10 mg PO DAILY 02/02/19 [History] Furosemide 40 mg PO DAILY #30 tablet 02/04/19 [Rx] Past Medical History Cardiovascular History: Reports: Bypass, Heart Failure, High Cholesterol, Hypertension, Stents Respiratory History: Reports: COPD Gastrointestinal History: Reports: None Neurological History: Reports: None Endocrine/Metabolic History: Reports: Obesity/BMI 30+ Oncologic (Cancer) History: Reports: Bladder - Past Surgical History Head Surgeries/Procedures: Reports: None HEENT Surgical History: Reports: LASIK Cardiovascular Surgical History: Reports: Coronary Artery Stent GI Surgical History: Reports: Cholecystectomy, Hernia, Inguinal Male Surgical History: Reports: Other (See Below) Other Male Surgeries/Procedures: tumor removed from bladder and stents placed last spring Endocrine Surgical History: Reports: None Neurological Surgical History: Reports: Lumbar Spine, Other (See Below) Dermatological Surgical History: Reports: None Social & Family History - Tobacco Use Smoking Status *Q: Current Every Day Smoker Years of Tobacco use: 50 Packs/Tins Daily: 1 - Caffeine Use Caffeine Use: Reports: Coffee - Recreational Drug Use Recreational Drug Use: No ED ROS GENERAL - Review of Systems Review Of Systems: See Below Constitutional: Reports: No Symptoms HEENT: Reports: No Symptoms Respiratory: Reports: Shortness of Breath. Denies: Wheezing, Pleuritic Chest Pain, Cough, Sputum, Hemoptysis Cardiovascular: Reports: Chest Pain (gone now) Endocrine: Reports: No Symptoms GI/Abdominal: Reports: No Symptoms : Reports: No Symptoms Musculoskeletal: Reports: No Symptoms Skin: Reports: No Symptoms Neurological: Reports: No Symptoms ED EXAM, GENERAL - Physical Exam Exam: See Below Exam Limited By: No Limitations General Appearance: Alert, WD/WN, Mild Distress Eye Exam: Bilateral Eye: Normal Inspection Ears: Normal Canal, Hearing Grossly Normal Ear Exam: Bilateral Ear: Auricle Normal, Canal Normal Nose: Normal Inspection, No Blood Throat/Mouth: Normal Inspection, Normal Lips, Normal Oropharynx, Normal Voice, No Airway Compromise Head: Normocephalic Neck: Normal Inspection Respiratory/Chest: No Accessory Muscle Use, Respiratory Distress (mild), Rales, Rhonchi (bilaterally), Other (mild tachypnea) Cardiovascular: Regular Rate, Rhythm. No: No Edema GI/Abdominal: Normal Bowel Sounds, Soft, Non-Tender, No Distention Back Exam: Normal Inspection. No: CVA Tenderness (R), CVA Tenderness (L) Extremities: Normal Range of Motion, Pedal Edema (both LE's below the knees). No: Normal Inspection, Non-Tender, No Pedal Edema Neurological: Alert, Oriented, CN II-XII Intact, Normal Cognition, No Motor/ Sensory Deficits Psychiatric: Normal Affect, Normal Mood Skin Exam: Warm, Dry, Intact, Normal Color, No Rash EKG INTERPRETATION EKG Date: 02/15/19 Time: 10:40 Rhythm: NSR Rate (Beats/Min): 77 [place]: Normal P-Wave: Present QRS: RBBB ST-T: Depressed QT: Normal Comparison: No Change (Yesterday's EKG was similar) Course - Vital Signs Text/Narrative:: accepted by Dr. Perez @ [facility], will go to [facility] via EMS. Last Recorded V/S: Last Vital Signs Temp 36.1 C 02/15/19 11:18 Pulse 85 02/15/19 12:21 Resp 28 H 02/15/19 12:21 BP 99/71 02/15/19 12:21 Pulse Ox 99 02/15/19 11:18 - Orders/Labs/Meds Orders: Active Orders 24 hr Category Date Time Status Cardiac Monitoring [RC] .As Directed Care 02/15/19 10:57 Active EKG Documentation Completion [RC] ASDIRECTED Care 02/15/19 10:57 Active Oxygen Therapy Adult [Oxygen Therapy, ED] [RC] Care 02/15/19 11:09 Active ASDIRECTED UA W/MICROSCOPIC [URIN] Stat Lab 02/15/19 10:57 Ordered Heparin Sodium Med 02/15/19 12:24 Once 5,000 units IVPUSH ONETIME ONE Heparin Sodium/D5W [Heparin 25,000 Units in D5W 500 ML] Med 02/15/19 12:30 Ordered 25,000 units in 500 ml IV TITRATE Nitroglycerin [Nitrostat] Med 02/15/19 11:52 Active 0.4 mg SL Q5M PRN EKG 12 Lead [EK] Routine Ther 02/15/19 10:57 Ordered Medication Orders Nitroglycerin (Nitrostat) 0.4 mg SL Q5M PRN PRN Reason: Chest Pain Labs: Laboratory Tests 02/15/19 02/15/19 Range/Units 11:25 11:25 WBC 12.8 H (4.5-11.0) K/uL RBC 5.81 (4.30-5.90) M/uL Hgb 15.2 H (12.0-15.0) g/dL Hct 48.0 (40.0-54.0) % MCV 83 (80-98) fL MCH 26 L (27-31) pg MCHC 32 (32-36) % Plt Count 229 (150-400) K/uL Sodium 139 L (140-148) mmol/L Potassium 4.5 (3.6-5.2) mmol/L Chloride 102 (100-108) mmol/L Carbon Dioxide 26 (21-32) mmol/L Anion Gap 15.5 H (5.0-14.0) mmol/L BUN 23 H (7-18) mg/dL Creatinine 1.4 H (0.8-1.3) mg/dL Est Cr Clr Drug Dosing 1.65 mL/min Estimated GFR (MDRD) 50 L (>60) Glucose 242 H (74-106) mg/dL Calcium 9.1 (8.5-10.1) mg/dL Troponin I 2.834 H* (0.000-0.056) ng/mL Meds: Medications Generic Name Dose Route Start Last Admin Trade Name Freq PRN Reason Stop Dose Admin Nitroglycerin 0.4 mg 02/15/19 11:52 Nitrostat SL Q5M PRN Chest Pain Discontinued Medications Generic Name Dose Route Start Last Admin Trade Name Freq PRN Reason Stop Dose Admin Furosemide 80 mg 02/15/19 11:29 02/15/19 11:44 Lasix IVPUSH 02/15/19 11:30 80 mg ONETIME ONE Administration Departure - Departure Time of Disposition: 12:45 Disposition: DC/Tfer to Acute Hospital 02 Condition: Serious Clinical Impression: Non-ST elevated myocardial infarction CHF (congestive heart failure) Qualifiers: Heart failure type: unspecified Heart failure chronicity: acute on chronic Qualified Code(s): I50.9 - Heart failure, unspecified - Discharge Information *PRESCRIPTION DRUG MONITORING PROGRAM REVIEWED*: No *COPY OF PRESCRIPTION DRUG MONITORING REPORT IN PATIENT SIMONE: No Referrals: PCP,None [Primary Care Provider] - Forms: ED Department Discharge - My Orders Last 24 Hours: My Active Orders 02/15/19 10:57 Cardiac Monitoring [RC] .As Directed EKG Documentation Completion [RC] ASDIRECTED UA W/MICROSCOPIC [URIN] Stat EKG 12 Lead [EK] Routine 02/15/19 11:09 Oxygen Therapy Adult [Oxygen Therapy, ED] [RC] ASDIRECTED 02/15/19 11:52 Nitroglycerin [Nitrostat] 0.4 mg SL Q5M PRN 02/15/19 12:24 Heparin Sodium 5,000 units IVPUSH ONETIME ONE 02/15/19 12:30 Heparin Sodium/D5W [Heparin 25,000 Units in D5W 500 ML] 25,000 units in 500 ml IV TITRATE - Assessment/Plan Last 24 Hours: My Active Orders 02/15/19 10:57 Cardiac Monitoring [RC] .As Directed EKG Documentation Completion [RC] ASDIRECTED UA W/MICROSCOPIC [URIN] Stat EKG 12 Lead [EK] Routine 02/15/19 11:09 Oxygen Therapy Adult [Oxygen Therapy, ED] [RC] ASDIRECTED 02/15/19 11:52 Nitroglycerin [Nitrostat] 0.4 mg SL Q5M PRN 02/15/19 12:24 Heparin Sodium 5,000 units IVPUSH ONETIME ONE 02/15/19 12:30 Heparin Sodium/D5W [Heparin 25,000 Units in D5W 500 ML] 25,000 units in 500 ml IV TITRATE
[2019-02-15] MEDS ORDERED: Furosemide 40 MG/4 ML VIAL IVPUSH ONE (11:29)
[2019-02-15] MEDS ORDERED: Nitroglycerin 0.4 MG Tab.SL SL PRN (11:52)
[2019-02-15] MEDS ORDERED: Heparin Sodium 5,000 Units/ML Vial IVPUSH ONE (12:24)
[2019-02-15] MEDS ORDERED: Heparin Sodium/D5W 25,000 UNITS/500 ML BAG IV SCH (12:30)
== END 2019-02-15 13:20 ==
LOC: JP.ED 10:50
DX: I11.0 Hypertensive heart disease with heart failure (principal); I50.9 Heart failure, unspecified; E78.00 Pure hypercholesterolemia, unspecified; I21.4 Non-ST elevation (NSTEMI) myocardial infarction; E66.9 Obesity, unspecified; F17.210 Nicotine dependence, cigarettes, uncomplicated; Z79.899 Other long term (current) drug therapy; Z79.82 Long term (current) use of aspirin; Z90.49 Acquired absence of other specified parts of digestive tract; Z68.30 Body mass index [BMI] 30.0-30.9, adult
CPT/HCPCS: 36415; 80048; 84484; 85027; 93005; 96374; 96375; 99285; J1644; J1940; 93010